=== PATIENT | female | born 1950 | race Hispanic/Latino ===

== ENCOUNTER 2020-10-19 03:12 | Inpatient (IN) | payer MEDICARE ==
[2020-10-19] VITALS (15 sets, daily range): BP systolic 96–148; BP diastolic 60–90
[~2020-10-19] VITALS: Ht 160 cm; Wt 73.5 kg
[2020-10-19] MEDS ORDERED: PROPOFOL 1000 MG/100 ML 100 ML IV ONE (03:17)
[2020-10-19] MEDS ORDERED: NOREPINEPHRINE 4MG/NS 250ML 250 ML IV ONE (03:22)
[2020-10-19 03:35] LABS: BASOPHILS % (AUTO) 0.6 % (0.0-5.0); EOSINOPHILS % (AUTO) 0.6 % (0.0-8.0); LYMPHOCYTES % (AUTO) 48.9 % (21.0-51.0); MEAN CORPUSCULAR HEMOGLOBIN 29.4 pg (27.0-33.0); MEAN CORPUSCULAR HGB CONC 33.1 g/dL (32.0-36.0); MEAN CORPUSCULAR VOLUME 88.7 fL (79-99); MONOCYTES % (AUTO) 6.5 % (3.0-13.0); PLATELET COUNT (AUTO) 205 K/uL (130-400); RED BLOOD CELL COUNT(AUTO) 3.27 MIL/uL (4.00-5.50); RED CELL DISTRIBUTION WIDTH 12.6 % (11.0-15.5); WHITE BLOOD COUNT (AUTO) 5.2 K/uL (4.8-10.8)
[2020-10-19 03:37] LABS: APPEARANCE,URINE Clear (CLEAR); BILIRUBIN,URINE Negative (NEGATIVE); COLOR,URINE Yellow (YELLOW); GLUCOSE, URINE (UA) Negative (NEGATIVE); KETONES,URINE Negative (NEGATIVE); LEUKOCYTE ESTERASE ,URINE Negative (NEGATIVE); NITRATE,URINE Negative (NEGATIVE); OCCULT BLOOD,URINE Negative (NEGATIVE); PH,URINE 5.5 (5.0-8.0); PROTEIN,URINE Negative (NEGATIVE); UROBILINOGEN,URINE 0.2 mg/dL (0.2-1.0)
[2020-10-19 03:38] LABS: CREATININE 0.8 mg/dL (0.5-1.5); POTASSIUM 3.1 mmol/L (3.5-5.1)
[2020-10-19] MEDS ORDERED: MIDAZOLAM HCL 5 MG/ML 2ML VIAL IV ONE (03:40)
[2020-10-19] MEDS ORDERED: FENTANYL CITRATE PF 50 MCG/1 ML 2ML VIAL ONE (03:40)
[2020-10-19 03:42] LABS: ALBUMIN 3.1 g/dL (3.5-5.0); BILIRUBIN,TOTAL 0.2 mg/dL (0.2-1.0); TOTAL PROTEIN, SERUM 6.3 g/dL (6.0-8.3)
[2020-10-19 03:45] LABS: AMPHET/METH SCREEN,URINE NEGATIVE (NEGATIVE); BARBITURATE SCREEN, URINE NEGATIVE (NEGATIVE); BENZODIAZEPINES SCREEN,URINE NEGATIVE (NEGATIVE); CANNABINOID SCREEN,URINE NEGATIVE (NEGATIVE); COCAINE SCREEN,URINE NEGATIVE (NEGATIVE); OPIATE SCREEN,URINE NEGATIVE (NEGATIVE); PHENCYCLIDINE SCREEN,URINE NEGATIVE (NEGATIVE)
[2020-10-19 03:47] LABS: INR 1.03 (0.85-1.15); PARTIAL THROMBOPLASTIN TIME 22.7 SEC (26.3-35.5); PROTHROMBIN TIME 11.1 SEC (9.6-11.6)
[2020-10-19 04:01] LABS: THYROID STIMULATING HORMONE 4.01 uIU/mL (0.36-3.74)
[2020-10-19 04:06] LABS: ABG BASE EXCESS -10.9 mmol/L (-2.0-3.0); ABG HCO3 14.2 mmol/L (21.0-28.0); ABG OXYGEN SATURATION 97.6 % (95.0-99.0); ABG PCO2 30 mmHg (32-45)
[2020-10-19] MEDS ORDERED: HALOPERIDOL LACTATE 5 MG/ML VIAL ONE (04:11)
[2020-10-19] MEDS ORDERED: TETANUS/DIPHTHERIA TOXOID [ADULT] 0.5 ML VIAL IM ONE (04:34)
[2020-10-19] MEDS ORDERED: IOHEXOL 350 MG/ML 100ML INFUS..BTL IV ONE (04:46)
[2020-10-19] MEDS ORDERED: SODIUM CHLORIDE 0.9% IV ONE ×2 (06:26→14:00)
[2020-10-19] MEDS ORDERED: GADODIAMIDE 10 MMOL/20 ML VIAL IV ONE (08:14)
[2020-10-19] MEDS ORDERED: FENTANYL CITRATE PF 0.05 MG/ML 1,000 MCG in SODIUM CHLORIDE 0.9% 100 ML IVPB SCH (11:45)
[2020-10-19] MEDS: THIAMINE HCL 100 MG/ML 2ML VIAL IVP SCH ×2 (11:45→13:05)
[2020-10-19] MEDS ORDERED: LIDOCAINE HCL-MPF 1% 2ML VIAL IV PRN ×3 (11:45→12:45)
[2020-10-19] MEDS ORDERED: LORAZEPAM 2 MG/ML 1 ML VIAL IM SCH (12:00)
[2020-10-19] MEDS ORDERED: PHARMACY COMMUNICATION MISC SCH ×2 (12:15→13:30)
[2020-10-19] MEDS ORDERED: POTASSIUM CHLORIDE 20MEQ/100ML 100 ML IV PRN ×2 (12:45)
[2020-10-19] MEDS ORDERED: DEXTROSE 50%-WATER 50 ML DISP.SYRIN IV PRN (12:45)
[2020-10-19] MEDS ORDERED: GLUCAGON 1MG KIT 1 MG ML IM PRN (12:45)
[2020-10-19] MEDS ORDERED: LORAZEPAM 2 MG/ML 1 ML VIAL IM PRN (12:45)
[2020-10-19] MEDS ORDERED: DEXAMETHASONE SOD PHOSPHATE 10MG/ML 1ML VIAL IV SCH (12:45)
[2020-10-19] MEDS ORDERED: POTASSIUM CHLORIDE 20 MEQ ERTAB PO PRN (12:45)
[2020-10-19] MEDS ORDERED: POTASSIUM CHLORIDE 10% ELIXIR 20 MEQ/15 ML UDCUP PO PRN (12:45)
[2020-10-19] MEDS ORDERED: FENTANYL 2500MCG+NS 250ML 250 ML IV SCH (13:00)
[2020-10-19] MEDS ORDERED: LORAZEPAM 2 MG/ML 1 ML VIAL IVP PRN (13:00)
[2020-10-19] MEDS ORDERED: DEXTROSE 5 % AND 0.9 % NACL 1,000 ML IV SCH (13:00)
--- NOTE | 2020-10-19 13:13 | NUR ---
Dr. King notified of change in neuro status. Dr. King notified by phone of pt opening eyes on command, giving consistent non-verbal answers to yes/no questions. No change in ability to move body below neck. Orders received.
[2020-10-19] MEDS ORDERED: THIAMINE HCL 300 MG in SODIUM CHLORIDE 0.9% 50 ML IV ONE (13:30)
[2020-10-19 13:34] LABS: ABG BASE EXCESS -9.4 mmol/L (-2.0-3.0); ABG HCO3 16.3 mmol/L (21.0-28.0); ABG OXYGEN SATURATION 97.4 % (95.0-99.0); ABG PCO2 35 mmHg (32-45)
[2020-10-19] MEDS ORDERED: SODIUM CHLORIDE 0.9% 500ML 500 ML IV ONE (13:35)
[2020-10-19] MEDS: M.V.I. IV [ADULT] 10 ML, FOLIC ACID 1 MG, THIAMINE HCL 100 MG in SODIUM CHLORIDE 0.9% 1... IV SCH (13:36)
[2020-10-19] MEDS ORDERED: COMPOUND IV REFRIGERATED 1 EACH IVSOLN MISC PRN (13:45)
[2020-10-19] MEDS ORDERED: SODIUM BICARB 50MEQ 50ML VIAL 100 ML ONE (13:47)
[2020-10-19] MEDS ORDERED: DOPAMINE HCL 400 MG/D5%-WATER 250 ML IV ONE (13:50)
[2020-10-19] MEDS ORDERED: METHYLPREDNISOLONE SOD SUCC IV ONE (14:00)
[2020-10-19] MEDS ORDERED: SODIUM CHLORIDE 0.9% IV SCH (14:45)
[2020-10-19] MEDS ORDERED: METHYLPREDNISOLONE IV SCH (14:45)
[2020-10-19] MEDS ORDERED: SODIUM BICARB 50MEQ 50ML VIAL IV SCH (15:10)
[2020-10-19 15:38] LABS: ABG BASE EXCESS -4.7 mmol/L (-2.0-3.0); ABG HCO3 19.8 mmol/L (21.0-28.0); ABG OXYGEN SATURATION 95.8 % (95.0-99.0); ABG PCO2 35 mmHg (32-45)
[2020-10-19] MEDS ORDERED: DEXTROSE 5 % AND 0.9 % NACL 1,000 ML IV ONE (16:05)
[2020-10-19] MEDS ORDERED: INSULIN HUMULIN R 100 UNIT/ML 3ML SQ SCH (16:30)
--- NOTE | 2020-10-19 19:11 | NUR ---
Admission charting not able to be fully completed due to pt neuro status and family "does not know" pt's medical history.
[2020-10-19] MEDS: POTASSIUM CHLORIDE 20MEQ/100ML 100 ML IV PRN (21:20)
[2020-10-20] VITALS (22 sets, daily range): BP systolic 97–132; BP diastolic 44–81
[2020-10-20] MEDS: POTASSIUM CHLORIDE 20MEQ/100ML 100 ML IV PRN ×2 (00:09→08:35)
[2020-10-20] MEDS: INSULIN HUMULIN R 100 UNIT/ML 3ML SQ SCH ×4 (00:16→16:30)
[2020-10-20 03:42] LABS: MEAN CORPUSCULAR HEMOGLOBIN 29.7 pg (27.0-33.0); MEAN CORPUSCULAR HGB CONC 34.3 g/dL (32.0-36.0); MEAN CORPUSCULAR VOLUME 86.5 fL (79-99); RED BLOOD CELL COUNT(AUTO) 3.47 MIL/uL (4.00-5.50); RED CELL DISTRIBUTION WIDTH 13.1 % (11.0-15.5); WHITE BLOOD COUNT (AUTO) 10.3 K/uL (4.8-10.8)
[2020-10-20 04:01] LABS: ALBUMIN 3.4 g/dL (3.5-5.0); MAGNESIUM 1.5 mg/dL (1.80-2.40); PHOSPHORUS 3.1 mg/dL (2.5-4.9); POTASSIUM 3.8 mmol/L (3.5-5.1); TOTAL PROTEIN, SERUM 6.9 g/dL (6.0-8.3)
[2020-10-20] MEDS ORDERED: MAGNESIUM 2GM PREMIX 50ML 50 ML IV ONE (04:08)
[2020-10-20 04:30] LABS: ABG BASE EXCESS -8.7 mmol/L (-2.0-3.0); ABG HCO3 15.5 mmol/L (21.0-28.0); ABG OXYGEN SATURATION 92.8 % (95.0-99.0); ABG PCO2 29 mmHg (32-45)
[2020-10-20] MEDS: M.V.I. IV [ADULT] 10 ML, FOLIC ACID 1 MG, THIAMINE HCL 100 MG in SODIUM CHLORIDE 0.9% 1... IV SCH (08:36)
[2020-10-20 10:44] LABS: INR 1.06 (0.85-1.15); PROTHROMBIN TIME 11.4 SEC (9.6-11.6)
[2020-10-20] MEDS ORDERED: SODIUM CHLORIDE 0.9% 1000ML 1,000 ML IV ONE (13:17)
[2020-10-20] MEDS ORDERED: SODIUM CHLORIDE 0.9% 1,000 ML IV SCH (15:00)
[2020-10-20] MEDS: SODIUM CHLORIDE 0.9% 1000ML 1,000 ML IV SCH (15:30)
[2020-10-20] MEDS ORDERED: ACETAMINOPHEN ELIXIR 650 MG/20.3 ML UDCUP NG PRN (17:15)
--- NOTE | 2020-10-20 17:25 | NUR ---
pat note met with patient's sons pt currently intubated and states resides at home alone.idnependent with adls/ambulation prior to admit, no home servies, drives per self. pt has no spouse and has adult children. sons hussain and Just Present open to md recommmendations as needed post dc. Addendum: 10/20/20 at 1730 by HENRIETTA KING CM Amended: Links added.
[2020-10-21] VITALS (47 sets, daily range): BP systolic 98–148; BP diastolic 51–86
[2020-10-21] MEDS: INSULIN HUMULIN R 100 UNIT/ML 3ML SQ SCH ×4 (00:24→21:00)
[2020-10-21 05:08] LABS: BASOPHILS % (AUTO) 0.1 % (0.0-5.0); LYMPHOCYTES % (AUTO) 2.8 % (21.0-51.0); MEAN CORPUSCULAR HEMOGLOBIN 29.7 pg (27.0-33.0); MEAN CORPUSCULAR HGB CONC 33.8 g/dL (32.0-36.0); MEAN CORPUSCULAR VOLUME 87.9 fL (79-99); MONOCYTES % (AUTO) 4.6 % (3.0-13.0); PLATELET COUNT (AUTO) 207 K/uL (130-400); RED CELL DISTRIBUTION WIDTH 13.7 % (11.0-15.5)
[2020-10-21 05:40] LABS: CREATININE 1.1 mg/dL (0.5-1.5); MAGNESIUM 2.9 mg/dL (1.80-2.40); POTASSIUM 4.1 mmol/L (3.5-5.1)
[2020-10-21 07:13] LABS: ABG BASE EXCESS -5.8 mmol/L (-2.0-3.0); ABG OXYGEN SATURATION 98.8 % (95.0-99.0); ABG PCO2 31 mmHg (32-45)
[2020-10-21] MEDS: DOPAMINE HCL 400 MG/D5%-WATER 250 ML IV PRN (08:20)
[2020-10-21] MEDS: M.V.I. IV [ADULT] 10 ML, FOLIC ACID 1 MG, THIAMINE HCL 100 MG in SODIUM CHLORIDE 0.9% 1... IV SCH (08:52)
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
--- NOTE | 2020-10-21 11:00 | NUR ---
cm note called by daughter Agnes short, and request to speak to cm in person, had conference with hussain, and Tariq stockton, and agnes Rafita, answered questions /concernsregarding jail care needs.snf, vs ltach, etc. also Medicare part B advised to try and enroll in program or medicaid, also updated on report from Agnes from [facility] that pt will be need long term care will probably need trach, peg, and placement. they verbalize understanding. they requested to try and obtain a medical POA for health care, informed that this CM would advise SW for assist , due to pt condition she understands but presently not sure she can formulate, due to pt only nods slightly and blinks for yes. or no. this cm also proceeded to pt's room other son Samson of all the above. all adult children verbalize they wish to make Agnes Short who is the duaghter that resides here as POA. will continue to followup. did advise all children, pt will need to be advised of this and she has to be agreeable. also updated Chanelle THAYER of this. will continue to followup as pt stabilizes.
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
[2020-10-21 14:28] LABS: ABG BASE EXCESS -5.6 mmol/L (-2.0-3.0); ABG HCO3 18.6 mmol/L (21.0-28.0); ABG OXYGEN SATURATION 98.8 % (95.0-99.0); ABG PCO2 33 mmHg (32-45)
--- NOTE | 2020-10-21 17:10 | NUR ---
FOLLOW UP ON [facility] AIR BED: CALLED ( ) AND SPOKE WITH NICOLE, INQUIRED ABOUT AIR BED ORDERED YESTERDAY MORNING. STATED SHE PAGED PERSONNEL TO DELIVER...INFORMED HER NO BED HERE AT HOSPITAL. NICOLE SAID SHE WOULD RE-SEND MESSAGE. REPORTED OFF TO PRIMARY NURSE, PRO MAYA.
[2020-10-21] MEDS ORDERED: TRAMADOL /APAP 37.5MG/325MG TAB PO PRN ×2 (19:00)
[2020-10-21] MEDS ORDERED: MORPHINE SULFATE 2 MG/ML 1ML SYG IVP PRN (19:00)
[2020-10-21] MEDS ORDERED: CHLORDIAZEPOXIDE HCL 25 MG CAP PO PRN (19:00)
[2020-10-21 19:26] LABS: BASOPHILS % (AUTO) 0.1 % (0.0-5.0); HEMATOCRIT 26.2 % (36-48); LYMPHOCYTES % (AUTO) 2.8 % (21.0-51.0); MEAN CORPUSCULAR HEMOGLOBIN 29.9 pg (27.0-33.0); MEAN CORPUSCULAR HGB CONC 33.2 g/dL (32.0-36.0); MONOCYTES % (AUTO) 4.3 % (3.0-13.0); NEUTROPHILS % (AUTO) 92.2 % (40.0-77.0); PLATELET COUNT (AUTO) 157 K/uL (130-400); RED BLOOD CELL COUNT(AUTO) 2.91 MIL/uL (4.00-5.50); RED CELL DISTRIBUTION WIDTH 14.6 % (11.0-15.5); WHITE BLOOD COUNT (AUTO) 11.6 K/uL (4.8-10.8)
[2020-10-21] MEDS: SODIUM CHLORIDE 0.9% 1000ML 1,000 ML IV SCH (23:32)
[2020-10-22] VITALS (26 sets, daily range): BP systolic 84–154; BP diastolic 37–98
[2020-10-22] MEDS: INSULIN HUMULIN R 100 UNIT/ML 3ML SQ SCH ×4 (00:53→18:00)
[2020-10-22 03:33] LABS: BASOPHILS % (AUTO) 0.1 % (0.0-5.0); LYMPHOCYTES % (AUTO) 4.3 % (21.0-51.0); MEAN CORPUSCULAR HEMOGLOBIN 29.7 pg (27.0-33.0); MEAN CORPUSCULAR HGB CONC 32.7 g/dL (32.0-36.0); MEAN CORPUSCULAR VOLUME 90.9 fL (79-99); MONOCYTES % (AUTO) 8.6 % (3.0-13.0); NEUTROPHILS % (AUTO) 86.2 % (40.0-77.0); PLATELET COUNT (AUTO) 154 K/uL (130-400); RED BLOOD CELL COUNT(AUTO) 2.86 MIL/uL (4.00-5.50); RED CELL DISTRIBUTION WIDTH 14.6 % (11.0-15.5)
[2020-10-22 03:48] LABS: POTASSIUM 4.6 mmol/L (3.5-5.1)
[2020-10-22] MEDS: SODIUM CHLORIDE 0.9% 1000ML 1,000 ML IV SCH ×2 (06:31→23:58)
[2020-10-22] MEDS: POLYETHYLENE GLYCOL 3350 17 GM POWD.PACK PO SCH (09:00)
[2020-10-22] MEDS: M.V.I. IV [ADULT] 10 ML, FOLIC ACID 1 MG, THIAMINE HCL 100 MG in SODIUM CHLORIDE 0.9% 1... IV SCH (09:00)
[2020-10-22] MEDS: MAGNESIUM HYDROXIDE 30 ML/UDCUP PO SCH (09:00)
[2020-10-22 09:18] LABS: ABG BASE EXCESS -5.4 mmol/L (-2.0-3.0); ABG HCO3 19.4 mmol/L (21.0-28.0); ABG OXYGEN SATURATION 96.1 % (95.0-99.0); ABG PCO2 36 mmHg (32-45)
[2020-10-22 11:03] LABS: ABG BASE EXCESS -5.6 mmol/L (-2.0-3.0); ABG HCO3 20.2 mmol/L (21.0-28.0); ABG OXYGEN SATURATION 95.8 % (95.0-99.0); ABG PCO2 41 mmHg (32-45)
--- NOTE | 2020-10-22 15:00 | NUR ---
[facility] NOTE: Referral--Family requesting MPOA SW visited pt's room, pt. intubated and not responsive to SW's greeting; dtr. Agnes at bedside. Agnes reported that pt. is single, resides alone, was independent and driving self prior to admission. Dtr. reported that pt. has four children; three sons Randall, Samson Low, and Tariq Thompson who all reside in [place] but are here visiting and Agnes resides locally. Agnes informed this worker that family is seeking to obtain MPOA for pt. This worker provided dtr. with education/information on Advance Directives and explained that while pt. is currently in this medical condition, she is unable to complete an AD/MPOA. Pt's dtr. stated that pt. can blink and is able to understand staff. SW explained to dtr. that once pt. is able to verbalize an understanding as to the document that she is signing, it is her right to complete an MPOA if she so chooses. [facility] informed Agnes that per Adrien/URSULA a meeting was held in her presence and that it was decided by all three brothers that she/Agnes would be the decision maker for pt. as she is closest to pt. and the fact that all three brothers reside in [place]; Agnes confirmed that was the outcome. Agnes stated that she and brothers are seeking MPOA because they don't want any problems in the future and that they will have to take over pt's finances, bills, etc. SW reiterated that MPOA is only for Medical decision making, not finances or property and that family could seek out paralegal instructor for power of environmental attorney; dtr. voiced an understanding. Dtr. requested SW's tel# to provide to brothers, stating that they would want to talk with SW and so contact tel# was provided. Dtr. voiced no other SS needs or concerns at this time. Dtr. requesting to speak with someone regarding visitation/alternating visitors; [facility] requested Ginette Eller/Director to speak with dtr. about visitors. SW unable to interview pt. or complete an initial assessment due to current medical condition. SW will continue to follow for any other SS needs.
[2020-10-22] MEDS: DOPAMINE HCL 400 MG/D5%-WATER 250 ML IV PRN (20:10)
[2020-10-23] VITALS (38 sets, daily range): BP systolic 87–183; BP diastolic 52–86
[2020-10-23] MEDS: INSULIN HUMULIN R 100 UNIT/ML 3ML SQ SCH ×4 (00:03→17:17)
[2020-10-23 04:21] LABS: BASOPHILS % (AUTO) 0.1 % (0.0-5.0); EOSINOPHILS % (AUTO) 39.6 % (0.0-8.0); HEMATOCRIT 27.9 % (36-48); LYMPHOCYTES % (AUTO) 6.5 % (21.0-51.0); MEAN CORPUSCULAR HEMOGLOBIN 29.5 pg (27.0-33.0); MEAN CORPUSCULAR HGB CONC 32.3 g/dL (32.0-36.0); MEAN CORPUSCULAR VOLUME 91.5 fL (79-99); MONOCYTES % (AUTO) 7.7 % (3.0-13.0); NEUTROPHILS % (AUTO) 45.2 % (40.0-77.0); PLATELET COUNT (AUTO) 152 K/uL (130-400); RED BLOOD CELL COUNT(AUTO) 3.05 MIL/uL (4.00-5.50); RED CELL DISTRIBUTION WIDTH 14.6 % (11.0-15.5)
[2020-10-23 04:38] LABS: ALBUMIN 2.3 g/dL (3.5-5.0); CREATININE 0.7 mg/dL (0.5-1.5); MAGNESIUM 2.6 mg/dL (1.80-2.40); PHOSPHORUS 2.9 mg/dL (2.5-4.9); POTASSIUM 4.6 mmol/L (3.5-5.1); TOTAL PROTEIN, SERUM 6.1 g/dL (6.0-8.3)
[2020-10-23 04:55] LABS: ABG BASE EXCESS -3.6 mmol/L (-2.0-3.0); ABG HCO3 21.2 mmol/L (21.0-28.0); ABG OXYGEN SATURATION 94.5 % (95.0-99.0); ABG PCO2 38 mmHg (32-45)
[2020-10-23] MEDS: POLYETHYLENE GLYCOL 3350 17 GM POWD.PACK PO SCH (09:14)
[2020-10-23] MEDS: MAGNESIUM HYDROXIDE 30 ML/UDCUP PO SCH (09:14)
[2020-10-23] MEDS: M.V.I. IV [ADULT] 10 ML, FOLIC ACID 1 MG, THIAMINE HCL 100 MG in SODIUM CHLORIDE 0.9% 1... IV SCH (09:32)
--- NOTE | 2020-10-23 11:47 | NUR ---
RD FOLLOW UP Pt is currently on tube feeding Jevity 1.5 at 40 ml/hr As per RN pt has had no residual. No nutritional concerns at the moment as per RN. No bowel movements reported. As per RN, laxatives have been given. RD RECOMMENDATION: Continue current TF recommendations. Monitor Bowel Movements Contact dietary as nutritional concerns arise, thank you. LABS: NA 142, CL 114, BUN 31, CREAT 0.7, BG 138, TOT CA 8.5, PHOS 2.9, MG 2.6, AST 65, ALB 2.3, TOT PRO 6.1 Addendum: 10/23/20 at [address] Amended: Links added.
--- NOTE | 2020-10-23 15:00 | NUR ---
notification notified dr. Tee España of dr combs's order to transfer services.
--- NOTE | 2020-10-23 15:00 | NUR ---
MD VISIT DR. WISE PRESENT AT BEDSIDE TO ASSESS PATIENT AND SPEAK WITH SON, NAZIA. ORDERS RECEIVED AND ENTERED. SON AND PATIENT NOTIFIED OF ALL CHANGES TO ORDERS. VOICED UNDERSTANDING.
[2020-10-23] MEDS ORDERED: NOREPINEPHRINE 4MG/NS 250ML 250 ML IV ONE (15:38)
[2020-10-23] MEDS ORDERED: NOREPINEPHRINE 4MG/NS 250ML 250 ML IV SCH (15:45)
--- NOTE | 2020-10-23 15:59 | NUR ---
MD NOTIFICATION NOTIFIED DR. 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 ORDERS FOR CMP, MAGNESIUM LEVELS. ALSO NOTIFIED THAT PATIENT'S SON, NAZIA WISHES TO SPEAK WITH HIM PRIVATELY.
[2020-10-23] MEDS: ARTIFICAL TEARS SOL 15 ML OU SCH ×3 (16:20→23:56)
[2020-10-23 16:34] LABS: CREATININE 0.6 mg/dL (0.5-1.5); POTASSIUM 4.3 mmol/L (3.5-5.1)
[2020-10-23 16:38] LABS: MAGNESIUM 2.4 mg/dL (1.80-2.40); PHOSPHORUS 3.2 mg/dL (2.5-4.9)
[2020-10-23] MEDS: CHLORHEXIDINE GLUCONATE 473 ML MOUTHWASH MM SCH ×2 (17:10→23:57)
[2020-10-23] MEDS ORDERED: DOPAMINE HCL 400 MG/D5%-WATER 250 ML IV ONE (22:39)
[2020-10-23] MEDS: SODIUM CHLORIDE 0.9% 1000ML 1,000 ML IV SCH (23:30)
[2020-10-24] VITALS (24 sets, daily range): BP systolic 93–142; BP diastolic 52–88
[2020-10-24] MEDS: INSULIN HUMULIN R 100 UNIT/ML 3ML SQ SCH ×4 (00:33→17:32)
[2020-10-24] MEDS: ARTIFICAL TEARS SOL 15 ML OU SCH ×5 (04:11→20:45)
[2020-10-24 05:02] LABS: BASOPHILS % (AUTO) 0.5 % (0.0-5.0); HEMATOCRIT 27.5 % (36-48); LYMPHOCYTES % (AUTO) 4.8 % (21.0-51.0); MEAN CORPUSCULAR HEMOGLOBIN 29.3 pg (27.0-33.0); MEAN CORPUSCULAR HGB CONC 32.4 g/dL (32.0-36.0); MEAN CORPUSCULAR VOLUME 90.5 fL (79-99); MONOCYTES % (AUTO) 3.5 % (3.0-13.0); NEUTROPHILS % (AUTO) 89.9 % (40.0-77.0); NUCLEATED RED BLOOD CELLS 0.3 % (0.0-0.19); PLATELET COUNT (AUTO) 153 K/uL (130-400); RED BLOOD CELL COUNT(AUTO) 3.04 MIL/uL (4.00-5.50); RED CELL DISTRIBUTION WIDTH 14.2 % (11.0-15.5)
[2020-10-24] MEDS ORDERED: FENTANYL CITRATE PF 0.05 MG/ML 1,000 MCG in SODIUM CHLORIDE 0.9% 100 ML IVPB PRN (05:15)
[2020-10-24 05:19] LABS: ALBUMIN 1.9 g/dL (3.5-5.0); BILIRUBIN,TOTAL 0.7 mg/dL (0.2-1.0); CREATININE 0.6 mg/dL (0.5-1.5); MAGNESIUM 2.4 mg/dL (1.80-2.40); PHOSPHORUS 2.9 mg/dL (2.5-4.9); TOTAL PROTEIN, SERUM 5.9 g/dL (6.0-8.3)
[2020-10-24] MEDS: CHLORHEXIDINE GLUCONATE 473 ML MOUTHWASH MM SCH ×3 (06:26→17:31)
[2020-10-24 06:58] LABS: ABG BASE EXCESS -0.3 mmol/L (-2.0-3.0); ABG HCO3 25.5 mmol/L (21.0-28.0); ABG OXYGEN SATURATION 94.8 % (95.0-99.0); ABG PCO2 46 mmHg (32-45)
[2020-10-24] MEDS: FENTANYL 2500MCG+NS 250ML 250 ML IV PRN (07:00)
[2020-10-24] MEDS: POLYETHYLENE GLYCOL 3350 17 GM POWD.PACK PO SCH (08:17)
[2020-10-24] MEDS: MAGNESIUM HYDROXIDE 30 ML/UDCUP PO SCH (08:17)
[2020-10-24] MEDS: M.V.I. IV [ADULT] 10 ML, FOLIC ACID 1 MG, THIAMINE HCL 100 MG in SODIUM CHLORIDE 0.9% 1... IV SCH (08:18)
[2020-10-24] MEDS: ZOSYN 3.375GM+NS 50ML 50 ML IV SCH ×2 (10:35→16:27)
[2020-10-24] MEDS ORDERED: DOPAMINE HCL 400 MG/D5%-WATER 250 ML IV ONE (13:47)
[2020-10-24] MEDS ORDERED: DOPAMINE HCL 400 MG/D5%-WATER 250 ML IV PRN (14:00)
[2020-10-24] MEDS: SODIUM CHLORIDE 0.9% 1000ML 1,000 ML IV SCH (19:30)
[2020-10-25] VITALS (25 sets, daily range): BP systolic 90–177; BP diastolic 47–98
[2020-10-25] MEDS: ZOSYN 3.375GM+NS 50ML 50 ML IV SCH ×3 (00:08→16:30)
[2020-10-25] MEDS: INSULIN HUMULIN R 100 UNIT/ML 3ML SQ SCH ×4 (00:08→17:27)
[2020-10-25] MEDS: CHLORHEXIDINE GLUCONATE 473 ML MOUTHWASH MM SCH ×4 (00:08→17:27)
[2020-10-25] MEDS: ARTIFICAL TEARS SOL 15 ML OU SCH ×6 (00:08→20:35)
[2020-10-25] MEDS: FENTANYL 2500MCG+NS 250ML 250 ML IV PRN (05:47)
[2020-10-25] MEDS: DOPAMINE HCL 400 MG/D5%-WATER 250 ML IV PRN (08:06)
[2020-10-25] MEDS: MAGNESIUM HYDROXIDE 30 ML/UDCUP PO SCH (09:00)
[2020-10-25] MEDS: POLYETHYLENE GLYCOL 3350 17 GM POWD.PACK PO SCH (09:00)
--- NOTE | 2020-10-25 10:57 | NUR ---
PT. STATUS DR. CRAIN AND TA JENSEN SPOKE AT LENGTH WITH PT. SON, NAZIA, REGARDING PT. POOR PROGNOSIS. FAMILY VERBALIZES THEY UNDERSTAND AND ARE PENDING PALLIATIVE CARE AND FAMILY DISCUSSION. WILL CONTINUE TO MONITOR.
[2020-10-25] MEDS: MIDODRINE HCL 5 MG TABLET PO SCH ×2 (15:23→20:35)
[2020-10-25] MEDS: SODIUM CHLORIDE 0.9% 1000ML 1,000 ML IV SCH (15:30)
[2020-10-25] MEDS: HEPARIN SODIUM 5000UNIT/ML 1ML VIAL SQ SCH (20:37)
[2020-10-26] VITALS (18 sets, daily range): BP systolic 101–155; BP diastolic 55–87
[2020-10-26] MEDS: INSULIN HUMULIN R 100 UNIT/ML 3ML SQ SCH ×4 (00:13→17:38)
[2020-10-26] MEDS: ZOSYN 3.375GM+NS 50ML 50 ML IV SCH ×3 (00:13→15:58)
[2020-10-26] MEDS: ARTIFICAL TEARS SOL 15 ML OU SCH ×5 (00:13→15:37)
[2020-10-26] MEDS: CHLORHEXIDINE GLUCONATE 473 ML MOUTHWASH MM SCH ×4 (00:14→17:38)
[2020-10-26] MEDS: DOPAMINE HCL 400 MG/D5%-WATER 250 ML IV PRN (02:57)
[2020-10-26 04:00] LABS: ABG BASE EXCESS 5.2 mmol/L (-2.0-3.0); ABG HCO3 29.8 mmol/L (21.0-28.0); ABG OXYGEN SATURATION 98.9 % (95.0-99.0); ABG PCO2 43 mmHg (32-45)
[2020-10-26 04:12] LABS: BASOPHILS % (AUTO) 0.1 % (0.0-5.0); EOSINOPHILS % (AUTO) 1.1 % (0.0-8.0); HEMATOCRIT 23.7 % (36-48); LYMPHOCYTES % (AUTO) 10.6 % (21.0-51.0); MEAN CORPUSCULAR HEMOGLOBIN 29.5 pg (27.0-33.0); MEAN CORPUSCULAR HGB CONC 32.5 g/dL (32.0-36.0); MEAN CORPUSCULAR VOLUME 90.8 fL (79-99); MONOCYTES % (AUTO) 6.2 % (3.0-13.0); NEUTROPHILS % (AUTO) 77.9 % (40.0-77.0); PLATELET COUNT (AUTO) 181 K/uL (130-400); RED BLOOD CELL COUNT(AUTO) 2.61 MIL/uL (4.00-5.50); RED CELL DISTRIBUTION WIDTH 14.6 % (11.0-15.5); WHITE BLOOD COUNT (AUTO) 7.1 K/uL (4.8-10.8)
[2020-10-26 04:28] LABS: ALBUMIN 1.4 g/dL (3.5-5.0); BILIRUBIN,TOTAL 0.8 mg/dL (0.2-1.0); CREATININE 0.7 mg/dL (0.5-1.5); MAGNESIUM 4.1 mg/dL (1.80-2.40); PHOSPHORUS 3.9 mg/dL (2.5-4.9); POTASSIUM 3.9 mmol/L (3.5-5.1); TOTAL PROTEIN, SERUM 5.8 g/dL (6.0-8.3)
[2020-10-26] MEDS: MIDODRINE HCL 5 MG TABLET PO SCH (08:10)
[2020-10-26] MEDS: POLYETHYLENE GLYCOL 3350 17 GM POWD.PACK PO SCH (08:11)
[2020-10-26] MEDS: HEPARIN SODIUM 5000UNIT/ML 1ML VIAL SQ SCH (08:12)
[2020-10-26] MEDS: MAGNESIUM HYDROXIDE 30 ML/UDCUP PO SCH (09:00)
[2020-10-26] MEDS ORDERED: MIDODRINE HCL 5 MG TABLET PO SCH (14:00)
[2020-10-26] MEDS ORDERED: LORAZEPAM 2 MG/ML 1 ML VIAL IM PRN (16:45)
[2020-10-26] MEDS ORDERED: MORPHINE SULFATE 2 MG/ML 1ML SYG IV PRN (16:45)
[2020-10-26] MEDS ORDERED: LORAZEPAM 2 MG/ML 1 ML VIAL ONE (17:06)
--- NOTE | 2020-10-26 17:14 | NUR ---
DNR/WITHDRAWAL OF CARE FAMILY AT BEDSIDE. DNR/WITHDRAWAL OF LIFE SIGNED. DR. WISE MADE AWARE AND ORDERS RECEIVED.
--- NOTE | 2020-10-26 17:30 | NUR ---
EXTUBATION PT. EXTUBATED TO NRB. FAMILY AT BEDSIDE. WILL CONTINUE TO MONITOR. DR. BELTRAN MADE AWARE.
[2020-10-26] MEDS ORDERED: IPRATROPIUM/ALBUTEROL SULFATE 3 ML SOLUTION IH SCH (18:00)
[2020-10-26] MEDS ORDERED: ACETYLCYSTEINE 10% 100MG/ML 4ML VIAL IH SCH (18:00)
--- NOTE | 2020-10-26 18:30 | NUR ---
PT. PT. AT 1830 WITH FAMILY AT BEDSIDE. INTERCHANGE AGENT PRONOUNCED AT BEDSIDE. DR. WISE AND DR. MARTINEZ MADE AWARE. TOSA PHONED AND PT. RULED OUT. PT.HAS NO BELONGINGS. PT. FAMILY UNSURE OF HOME AT THIS TIME. INTERCHANGE AGENT NUMBER GIVEN.
== END 2020-10-26 18:30 | disposition expired | DRG 207 ==
LOC: EDH 03:12 → EDHIP 07:21 → 2DH 11:06
PROVIDERS: ADMIT Family Medicine; ATTEND Family Medicine
PROC: 5A1955Z Respiratory Ventilation, Greater than 96 Consecutive Hours (ICD-10-PCS; principal; 2020-10-19)
PROC: 0BH17EZ Insertion of Endotracheal Airway into Trachea, Via Natural or Artificial Opening (ICD-10-PCS; 2020-10-19)
PROC: 3E0234Z Introduction of Serum, Toxoid and Vaccine into Muscle, Percutaneous Approach (ICD-10-PCS; 2020-10-19)
PROC: 02HV33Z Insertion of Infusion Device into Superior Vena Cava, Percutaneous Approach (ICD-10-PCS; 2020-10-20)
PROC: B548ZZA Ultrasonography of Superior Vena Cava, Guidance (ICD-10-PCS; 2020-10-20)
DX: J96.20 Acute and chronic respiratory failure, unspecified whether with hypoxia or hypercapnia (principal); G82.50 Quadriplegia, unspecified; J69.0 Pneumonitis due to inhalation of food and vomit; R40.20 Unspecified coma; I77.74 Dissection of vertebral artery; S14.105A Unspecified injury at C5 level of cervical spinal cord, initial encounter; E87.2 Acidosis; I44.2 Atrioventricular block, complete; S12.500A Unspecified displaced fracture of sixth cervical vertebra, initial encounter for closed fracture; S12.600A Unspecified displaced fracture of seventh cervical vertebra, initial encounter for closed fracture; S12.300A Unspecified displaced fracture of fourth cervical vertebra, initial encounter for closed fracture; S12.400A Unspecified displaced fracture of fifth cervical vertebra, initial encounter for closed fracture; Z66 Do not resuscitate; F10.129 Alcohol abuse with intoxication, unspecified; R00.1 Bradycardia, unspecified; E86.0 Dehydration; I10 Essential (primary) hypertension; Y90.7 Blood alcohol level of 200-239 mg/100 ml; Z20.828 Contact with and (suspected) exposure to other viral communicable diseases; D64.9 Anemia, unspecified; E87.6 Hypokalemia; S00.81XA Abrasion of other part of head, initial encounter; M47.812 Spondylosis without myelopathy or radiculopathy, cervical region; M25.78 Osteophyte, vertebrae; W22.8XXA Striking against or struck by other objects, initial encounter; T14.8XXA Other injury of unspecified body region, initial encounter; S13.4XXA Sprain of ligaments of cervical spine, initial encounter; W01.0XXA Fall on same level from slipping, tripping and stumbling without subsequent striking against object, initial encounter; Z23 Encounter for immunization; Y93.89 Activity, other specified; Y92.89 Other specified places as the place of occurrence of the external cause; Y99.8 Other external cause status
CPT/HCPCS: 31500; 36415; 36600; 70450; 70551; 71045; 71260; 72125; 72141; 74177; 80048; 80053; 80305; 81003; 82550; 82803; 82948; 83690; 83735; 84100; 84132; 84443; 84484; 85025; 85027; 85610; 85730; 86850; 86900; 86901; 87040; 87088; 87426; 90714; 93005; 94002; 94003; 94150; 99291; 99292; A9579; C1751; C1894; J1100; J1265; J1630; J1644; J1815; J2060; J2250; J2543; J2704; J2930; J3010; J3411; J3475; J3480; J3490; J7030; J7040; J7042; J7050; Q9967; U0003